=== PATIENT | female | born 1995 | race Caucasian/White ===

== ENCOUNTER 2021-08-08 17:12 | Emergency (ER) | payer OTHER, SELFPAY ==
--- NOTE | 2021-08-08 17:16 | ED.DENTAL ---
HPI - Dental/Oral General Chief complaint: Dental/Oral Stated complaint: Toothache Time Seen by Provider: 08/08/21 17:16 Source: patient and RN notes reviewed History of Present Illness HPI Narrative: Patient is a 25-year-old female who presents the urgent care with complaints of left lower dental pain. Patient states that it started to have some pus drainage today. Denies any facial swelling, fever, nausea, vomiting. Patient does not have a dentist. Patient is a current smoker. States that she has been taking Tylenol for the pain. No other acute complaints. No acute distress noted. Patient aware the plan of care. Some parts of this dictation were generated by voice recognition software and may contain typographical and/or grammatical inaccuracies. Related Data Allergies Allergy/AdvReac Type Severity Reaction Status Date / Time trazodone Allergy Intermediate Hives Verified 08/08/21 17:39 fluoxetine [From Prozac] Allergy Hives Verified 08/08/21 17:39 Review of Systems Review of Systems: CONSTITUTIONAL: Denies fever, chills, or sweats. EYES: Denies visual changes, redness, or discharge. ENT: Denies rhinorrhea, congestion, sore throat, or otalgia. Reports of left lower dental pain CARDIOVASCULAR: Denies chest pain, palpitations, or edema. RESPIRATORY: Denies cough or dyspnea. GASTROINTESTINAL: Denies abdominal pain, nausea, vomiting, or diarrhea. GENITOURINARY: Denies dysuria or hematuria. SKIN: Denies rash or itching. MUSCULOSKELETAL: Denies back pain, joint pain, or myalgia. NEUROLOGIC: Denies headache, numbness, or weakness. All other systems reviewed are negative, except as documented in HPI. PMFSH Comments At the time of my signature, I reviewed and agree with the nursing past medical, surgical, social, and family history. There is no relevant family history pertinent to the patient complaint. Exam Narrative: GENERAL: This is a well-nourished, well-developed patient, in no apparent distress. HEAD: normocephalic, atraumatic. EYES: PERRL. Sclera clear/white. Vision is grossly intact. EARS: External ears normal, auditory canals clear and without drainage, TMs normal without perforation. Hearing grossly intact. NOSE: External nose normal with no obvious nasal discharge, nares without redness, no rhinorrhea. THROAT: Mucous membranes moist DENTAL: Notable abscess to the posterior aspect of the left lower second molar with mild surrounding erythema/edema NECK: Neck supple CARDIOVASCULAR: Regular rate and rhythm without murmurs, gallops, or rubs. RESPIRATORY: Clear to auscultation. Breath sounds equal bilaterally. No wheezes, rales, or rhonchi. SKIN: warm, intact with no suspicious lesions or rash, good texture and turgor. NEURO: awake, alert, and oriented to person, place and time. There were no obvious focal neurologic abnormalities. EXTREMITIES: No clubbing, cyanosis, or edema. Course Course Level of Care: Express Care Visit Vital Signs Vital signs: Vital Signs Temperature 98.2 F 08/08/21 17:34 Pulse Rate 77 08/08/21 17:34 Respiratory Rate 20 08/08/21 17:34 Blood Pressure 120/67 08/08/21 17:34 Pulse Oximetry 100 08/08/21 17:34 Temperature 98.2 F 08/08/21 17:34 Pulse Rate 77 08/08/21 17:34 Respiratory Rate 20 08/08/21 17:34 Blood Pressure 120/67 08/08/21 17:34 Pulse Oximetry 100 08/08/21 17:34 Reviewed MDM - Dental/Oral MDM Narrative Medical decision making narrative: Advised the patient to complete the oral antibiotic regimen as prescribed. Advised the patient to eat and drink with the medication. Use Tylenol/ibuprofen as needed for pain and comfort. Use Benadryl as needed for swelling. May use an ice pack as needed for pain and comfort to the jaw. Follow-up with your PCP/dentist within 2 to 5 days or for worsening symptoms or failure to improve. Differential Diagnosis Differential diagnosis: Likely gingival abscess, dental caries, toothache, dental abscess, fracture of tooth
[2021-08-08 17:34] VITALS: BP 120/67; PULSE 77; RESP 20; TEMP 36.8; O2SAT 100
== END 2021-08-08 18:04 | disposition home or self-care (01) ==
PROVIDERS: Emergency Provider Nurse Practitioner Family
DX: K04.7 Periapical abscess without sinus (principal)
CPT/HCPCS: 99213; G0463

== ENCOUNTER 2021-09-25 15:54 | Emergency (ER) | payer OTHER, SELFPAY ==
--- NOTE | 2021-09-25 15:56 | ED.URI ---
HPI - URI/Sore Throat General Chief Complaint: Upper Respiratory Infection Stated Complaint: sinus pressure achey and nausea Time Seen by Provider: 09/25/21 15:56 Source: patient and RN notes reviewed History of Present Illness HPI Narrative: Patient is a 26-year-old female who presents the urgent care with complaints of body aches, sinus pressure, chills and sweats with intermittent nausea. Patient states that it started all within the last 24 hours and seems to worsen within the last couple hours. Patient is not anything [id number] for her symptoms. States that she has not been vaccinated but denies of any recent ill contacts. No other acute complaints. No acute distress noted. Patient read the plan of care. Some parts of this dictation were generated by voice recognition software and may contain typographical and/or grammatical inaccuracies. Related Data Allergies Allergy/AdvReac Type Severity Reaction Status Date / Time trazodone Allergy Intermediate Hives Verified 08/08/21 17:39 fluoxetine [From Prozac] Allergy Hives Verified 08/08/21 17:39 Review of Systems Review of Systems: CONSTITUTIONAL: Reports of chills and fatigue EYES: Denies visual changes, redness, or discharge. ENT: Reports of nasal congestion, rhinorrhea and postnasal drainage CARDIOVASCULAR: Denies chest pain, palpitations, or edema. RESPIRATORY: Denies cough or dyspnea. GASTROINTESTINAL: Denies abdominal pain, nausea, vomiting, or diarrhea. GENITOURINARY: Denies dysuria or hematuria. SKIN: Denies rash or itching. MUSCULOSKELETAL: Denies back pain, joint pain. Reports body aches NEUROLOGIC: Denies headache, numbness, or weakness. All other systems reviewed are negative, except as documented in HPI. PMFSH Comments At the time of my signature, I reviewed and agree with the nursing past medical, surgical, social, and family history. There is no relevant family history pertinent to the patient complaint. Exam Narrative: GENERAL: This is a well-nourished, well-developed patient appears slightly fatigued HEAD: normocephalic, atraumatic. Frontal sinus pressure EYES: PERRL. Sclera clear/white. Vision is grossly intact. EARS: External ears normal, auditory canals clear and without drainage, TMs normal without perforation. Hearing grossly intact. NOSE: External nose normal with no obvious nasal discharge. bilateral erythemic nares with clear to yellow rhinorrhea THROAT: Mucous membranes moist, posterior pharynx clear. Moderate postnasal drainage NECK: Neck supple, non-tender without lymphadenopathy CARDIOVASCULAR: Regular rate and rhythm without murmurs, gallops, or rubs. RESPIRATORY: Clear to auscultation. Breath sounds equal bilaterally. No wheezes, rales, or rhonchi. Wheezing cleared with cough. SKIN: warm, intact with no suspicious lesions or rash, good texture and turgor. NEURO: awake, alert, and oriented to person, place and time. There were no obvious focal neurologic abnormalities. EXTREMITIES: No clubbing, cyanosis, or edema. Course Course Level of Care: Express Care Visit Vital Signs Vital signs: Vital Signs Temperature 98.5 F 09/25/21 16:05 Pulse Rate 84 09/25/21 16:05 Respiratory Rate 20 09/25/21 16:05 Blood Pressure 116/64 09/25/21 16:05 Pulse Oximetry 98 09/25/21 16:05 Temperature 98.5 F 09/25/21 16:05 Pulse Rate 84 09/25/21 16:05 Respiratory Rate 20 09/25/21 16:05 Blood Pressure 116/64 09/25/21 16:05 Pulse Oximetry 98 09/25/21 16:05 Reviewed MDM - URI/Sore Throat MDM Narrative Medical decision making narrative: Reviewed lab results with the patient. She is aware that influenza, rapid strep and Covid test were all negative. Your Covid test is not a very accurate test considering symptoms are started within the last 24 hours. Quarantine is only 5 days however if you wish to repeat the Covid test you may use a home test in the next 2 to 3 days. That test should be more accurate. Educated patient on
[2021-09-25 16:05] VITALS: BP 116/64; PULSE 84; RESP 20; TEMP 36.9; O2SAT 98
== END 2021-09-25 16:48 | disposition home or self-care (01) ==
PROVIDERS: Emergency Provider Nurse Practitioner Family
DX: B34.9 Viral infection, unspecified (principal); J32.9 Chronic sinusitis, unspecified; Z20.822 Contact with and (suspected) exposure to COVID-19
CPT/HCPCS: 87081; 87426; 87804; 87880; 99213; C9803; G0463

== ENCOUNTER 2021-11-29 12:02 | Emergency (ER) | payer OTHER, SELFPAY ==
[2021-11-29 12:04] VITALS: BP 125/67; PULSE 79; RESP 18; TEMP 36.9; O2SAT 100
[2021-11-29 12:15] VITALS: BP 105/61; PULSE 73; RESP 18; TEMP 37.1; O2SAT 98
--- NOTE | 2021-11-29 12:41 | ED.NAVMDI ---
HPI - Nausea/Vomiting/Diarrhea General Chief complaint: Nausea/Vomiting/Diarrhea Stated complaint: hypermesis during - 8 weeks Time Seen by Provider: 11/29/21 12:33 Source: patient History of Present Illness HPI Narrative: Patient presents with nausea and vomiting. She is approximately 8 weeks by LMP she has been nauseous and vomiting for the past 3 weeks. She is attempted various elana elements as well as Unisom and B6 without relief of her symptoms appear to be getting worse so she came to ER for evaluation. Denies abdominal pain vaginal bleeding vaginal discharge urinary symptoms or diarrhea. She has any fevers or known sick contacts denies any recent antibiotics. Related Data Allergies Allergy/AdvReac Type Severity Reaction Status Date / Time trazodone Allergy Intermediate Hives Verified 09/25/21 16:51 fluoxetine [From Prozac] Allergy Hives Verified 09/25/21 16:51 Review of Systems Review of Systems: CONSTITUTIONAL: Denies fever, chills, or sweats. EYES: Denies visual changes, redness, or discharge. ENT: Denies rhinorrhea, congestion, sore throat, or otalgia. CARDIOVASCULAR: Denies chest pain, palpitations, or edema. RESPIRATORY: Denies cough or dyspnea. GASTROINTESTINAL: Reports nausea and vomiting GENITOURINARY: Denies dysuria or hematuria. SKIN: Denies rash or itching. MUSCULOSKELETAL: Denies back pain, joint pain, or myalgia. NEUROLOGIC: Denies headache, numbness, dizziness, or weakness. PSYCHIATRIC: Denies anxiety or depression. All systems reviewed & are unremarkable except as noted in HPI and below PMFSH Past Medical History Medical History (Updated 11/29/21 @ 15:18 by Chicho Khalil MD) Patient denies significant medical history Social History Social History (Updated 11/29/21 @ 12:43 by Chicho Khalil MD) Living arrangements: with family Exam Narrative: GENERAL: Well-appearing, well-nourished, and in no acute distress. HEAD: Normocephalic, atraumatic. EYES: PERRLA and EOMI. ENT: Nares clear, no rhinorrhea or epistaxis. Mucous membranes moist. NECK: Supple. No masses. No JVD ABDOMEN: Soft, nontender, nondistended, normal active bowel sounds. EXTREMITIES: Normal range of motion. No edema. SKIN: Warm, dry, no rash. NEURO: No focal deficits. Alert and oriented x3. PSYCH: Normal mood and affect. Course Reevaluation(s) Reevaluation #1: Patient ports feeling much improved results and plan with patient. Patient is comfortable outpatient plan. Date: 11/29/21 Time: 15:08 Vital Signs Vital signs: Vital Signs Temperature 36.9 C 11/29/21 12:04 Pulse Rate 79 11/29/21 12:04 Respiratory Rate 18 11/29/21 12:04 Blood Pressure 125/67 11/29/21 12:04 Pulse Oximetry 100 11/29/21 12:04 Temperature 37.1 C 11/29/21 12:15 Pulse Rate 75 11/29/21 15:41 Respiratory Rate 16 11/29/21 15:41 Blood Pressure 97/62 L 11/29/21 15:41 Pulse Oximetry 99 11/29/21 15:41 Procedures Other Procedure Procedure 1: Other Procedure: Bedside transabdominal ED OB ultrasound there is a single IUP in the gestational sac with a heart rate of 150 no masses identified on the adnexa no free fluid in the pelvis identified. Findings consistent with viable single IUP. MDM - Nausea/Vomiting/Diarrhea MDM Narrative Medical decision making narrative: H&P as above, vss, pt looks clinically well, exam without acute abdomen, labs with dirty urine otherwise clinically unremarkable, img with viable IUP, additional labs/img considered, symptomatic relief available as needed, on reevaluation pt continues to looks clinically well. Suspect nausea vomiting related to given urine findings and will treat with Macrobid, dns severe sepsis, severe dehydration, pyelonephritis. plan to tx/monitor as op w/ pcm f/u findings/plan discussed with pt, pt agree/comfortable with plan, return precautions given Lab Data Result diagrams: 11/29/21 12:37 11/29/21 12:3
[2021-11-29 12:45] LABS: Basophils Percent Auto 0.3 % (0.2-1.2); Eosinophils Absolute Auto 0.3 K/mm3 (0-0.3); Eosinophils Percent Auto 3.5 % (0-4.4); Hematocrit 42.1 % (37.0-47.0); Hemoglobin 14.1 g/dL (12.0-15.0); Immature Granulocyte Absolute 0.01 K/mm3 (0.00-0.031); Immature Granulocyte Percent A 0.1 % (0-0.5); Lymphocytes Absolute Auto 2.21 K/mm3 (0.9-3.2); Lymphocytes Percent Auto 30.8 % (18.3-44.2); Mean Corpuscular HGB Conc 33.5 g/dl (32-36); Mean Corpuscular Hemoglobin 28.7 pg (26-34); Mean Corpuscular Volume 85.7 fl (80-100); Mean Platelet Volume 9.6 fl (7.4-10.4); Monocytes Absolute Auto 0.3 K/mm3 (0.1-0.6); Monocytes Percent Auto 4.7 % (2.6-8.5); Neutrophils Absolute Auto 4.3 K/mm3 (1.3-6.7); Neutrophils Percent Auto 60.6 % (45.5-73.1); Platelet Count Result 209 k/mm3 (150-375); Red Blood Count 4.91 M/mm3 (4.2-5.4); Red Cell Distribution Width 12.3 % (11.5-14.5); White Blood Count 7.2 K/mm3 (4.5-10.0)
[2021-11-29 12:57] LABS: Alanine Aminotransferase 16 U/L (4-35); Albumin Level 4.3 g/dL (3.5-5.1); Alkaline Phosphatase 61 U/L (38-126); Anion Gap 5 mmol/L (8-16); Aspartate Amino Transferase 20 U/L (14-36); Bilirubin,Total 0.6 mg/dL (0.2-1.3); Blood Urea Nitrogen 7 mg/dL (7-17); Calcium 8.7 mg/dL (8.4-10.2); Carbon Dioxide 25 mmol/L (22-30); Chloride 104 mmol/L (98-107); Estimated CRCL calculation 178 ml/min; Estimated Glomerular Filt Rate > 60; Glucose 92 mg/dL (65-110); Lipase 26 U/L (23-300); Potassium 3.7 mmol/L (3.4-5.0); Sodium 134 mmol/L (137-145)
[2021-11-29] MEDS: DEXTROSE 5%/0.9% SOD CHL 1,000 ML 999 ML IV CONT (12:58)
[2021-11-29 13:12] VITALS: BP 116/73; PULSE 70; RESP 18; O2SAT 96
[2021-11-29 13:13] LABS: Appearance Urine Cloudy (Clear); Bilirubin Urine 2+ (Negative); Blood Urine Negative (Negative); Color Urine Amber (Yellow); Glucose Urine UA Negative (Negative); Ketones Urine 2+ mg/dL (Negative); Leukocyte Esterase Ur Trace LEU/UL (Negative); Nitrate Urine Negative (Negative); Protein Urine 1+ mg/dL (Negative); Specific Grav Ur >= 1.030 (1.001-1.035)
[2021-11-29 13:19] LABS: Mucus Urine Heavy /lpf; Squamous Epithelial Cell Urine Many /hpf (Few)
[2021-11-29 13:23] LABS: Add Urine Microscopic? YES
[2021-11-29] MEDS: METOCLOPRAMIDE HCL INJ 10 MG/2 ML VIAL IV PUSH (14:17)
[2021-11-29 14:19] VITALS: BP 111/61; PULSE 68; RESP 17; O2SAT 100
[2021-11-29 15:41] VITALS: BP 97/62; PULSE 75; RESP 16; O2SAT 99
== END 2021-11-29 15:40 | disposition home or self-care (01) ==
PROVIDERS: Emergency Medicine; Emergency Provider Emergency Medicine
DX: O21.9 Vomiting of pregnancy, unspecified (principal); O26.91 Pregnancy related conditions, unspecified, first trimester; R82.90 Unspecified abnormal findings in urine; Z3A.08 8 weeks gestation of pregnancy
CPT/HCPCS: 36415; 80053; 81001; 81025; 83690; 85025; 87086; 96361; 96365; 96375; 99284; J0131; J2765; J7042

== ENCOUNTER 2021-11-30 14:07 | Emergency (ER) | payer OTHER, SELFPAY ==
[2021-11-30 14:11] VITALS: BP 127/81; PULSE 102; RESP 16; TEMP 37; O2SAT 99
--- NOTE | 2021-11-30 15:12 | ED.NAVMDI ---
HPI - Nausea/Vomiting/Diarrhea General Chief complaint: Nausea/Vomiting/Diarrhea Stated complaint: Vomiting Time Seen by Provider: 11/30/21 15:12 Source: patient, RN notes reviewed and old records reviewed Mode of arrival: ambulatory Limitations: no limitations History of Present Illness HPI Narrative: 26-year-old female presents to [facility] with being 8 weeks she was seen in the ER yesterday and was given Reglan which has not helped her nausea and vomiting. Patient reports that she has been experiencing nausea and vomiting for the past 3 weeks. She states that she tried Unisom and B6 and the Reglan without improvement in nausea and vomiting. Patient denies any abdominal pain, no vaginal discharge or bleeding, denies any burning with urination at this time is taking Macrobid for UTI.Patient is afebrile has been able to keep some water down today MD elicited complaint: nausea and vomiting Pertinent past history: other (8 weeks ) Associated nausea: Yes Associated abdominal pain: No Treatment prior to arrival: other (Reglan and Unisom and B6) Related Data Allergies Allergy/AdvReac Type Severity Reaction Status Date / Time trazodone Allergy Intermediate Hives Verified 11/30/21 14:16 fluoxetine [From Prozac] Allergy Hives Verified 11/30/21 14:16 Review of Systems Review of Systems: CONSTITUTIONAL: Denies fever, chills, or sweats. EYES: Denies visual changes, redness, or discharge. ENT: Denies rhinorrhea, congestion, sore throat, or otalgia. CARDIOVASCULAR: Denies chest pain, palpitations, or edema. RESPIRATORY: Denies cough or dyspnea. GASTROINTESTINAL: Denies abdominal pain,positive for nausea, vomiting, no diarrhea. GENITOURINARY: Denies dysuria or hematuria is presently on Macrobid for UTI SKIN: Denies rash or itching. MUSCULOSKELETAL: Denies back pain, joint pain, or myalgia. NEUROLOGIC: Denies headache, numbness, or weakness. PSYCHIATRIC: Denies anxiety or depression. All systems reviewed & are unremarkable except as noted in HPI and below PMFSH Past Medical History Medical History (Updated 12/01/21 @ 00:00 by Obinna Navarro) Patient denies significant medical history Surgical History Surgical History (Updated 12/01/21 @ 17:33 by Rocío Fernandez NP) S/P tonsillectomy and adenoidectomy Social History Social History (Updated 12/01/21 @ 17:45 by Rocío Fernandez NP) Smoking packs per day: 0.5 Smoking cigarettes per day: 10.0 Smoking status: Current every day smoker Alcohol intake: former Substance use type: does not use Living arrangements: with family Gender identity (if verbalized by the patient): Female Comments At time of signature, agree with nursing past medical, surgical, social and family history. There is no relevant family history pertinent to the presenting complaint Exam Narrative: GENERAL: Well-appearing, well-nourished, and in no acute distress. HEAD: Normocephalic, atraumatic. EYES: PERRLA and EOMI. ENT: Nares clear, no rhinorrhea or epistaxis. Mucous membranes moist.TM's normal with good light reflex, throat pink with no lesions or exudates, no tonsils present NECK: Supple.no lymphadenopathy CHEST: Clear to auscultation. No respiratory distress. no tachypnea. SAO2 99% on room air HEART: Regular rate and rhythm. No murmur heard. Normal peripheral pulses. ABDOMEN: Soft, nontender, nondistended, normal active bowel sounds, nausea and vomiting, denies any diarrhea. EXTREMITIES: Normal range of motion. No edema. SKIN: Warm, dry, no rash. NEURO: No focal deficits. Alert and oriented x3. Course Course Level of Care: Express Care Visit Vital Signs Vital signs: Vital Signs Temperature 37.0 C 11/30/21 14:11 Pulse Rate 102 H 11/30/21 14:11 Respiratory Rate 16 11/30/21 14:11 Blood Pressure 127/81 11/30/21 14:11 Pulse Oximetry 99 11/30/21 14:11 Temperature 37.0 C 11/30/21 14:11 Pulse Rate 102 H 11/30/21 14:11 Respiratory Rate 16
== END 2021-11-30 15:44 | disposition home or self-care (01) ==
PROVIDERS: Emergency Provider Registered Nurse
DX: O26.891 Other specified pregnancy related conditions, first trimester (principal); R11.2 Nausea with vomiting, unspecified; O99.331 Smoking (tobacco) complicating pregnancy, first trimester; Z3A.08 8 weeks gestation of pregnancy
CPT/HCPCS: 99213; G0463

== ENCOUNTER 2022-01-08 17:08 | Emergency (ER) | payer OTHER, SELFPAY ==
[2022-01-08 17:16] VITALS: BP 125/67; PULSE 109; RESP 20; TEMP 37.6; O2SAT 98
--- NOTE | 2022-01-08 18:24 | ED.URI ---
HPI - URI/Sore Throat General Chief Complaint: Upper Respiratory Infection Stated Complaint: sore throat,fatigue,tyrell Time Seen by Provider: 01/08/22 18:25 Source: patient, RN notes reviewed and old records reviewed Mode of arrival: ambulatory Limitations: no limitations History of Present Illness HPI Narrative: 26 years female complains of sore throat,nausea, fatigue, and congestion, headaches and ear aches for the past 24 hours. Patient reports that she has been taking her Zofran for her nausea. Patient is 3 1/2 month . Patient admits to vaping some, states she started vaping to quit cigarettes and is gradually decreasing vaping. Patient admits that she was smoking marijuana till she got her prescription for Zofran because she has been having lot of nausea with . Patient reports that she has not had COVID immunizations or flu shot. MD elicited complaint: cough, sore throat and other (fatigue) Onset (ago): day(s) (1) Pain scale (0-10): 6 Treatments prior to arrival: acetaminophen and other (Zofran for nausea) Related Data Home Medications Medication Instructions Recorded Confirmed aripiprazole 5 mg tablet 1 tablet PO DAILY 01/08/22 01/08/22 hydroxyzine HCl 25 mg tablet 1 tablet PO TID 01/08/22 01/08/22 scopolamine base 1 mg over 3 days 1 ea transdermal Q72H 01/08/22 01/08/22 transdermal patch Allergies Allergy/AdvReac Type Severity Reaction Status Date / Time trazodone Allergy Intermediate Hives Verified 01/08/22 17:59 fluoxetine [From Prozac] Allergy Hives Verified 01/08/22 17:59 Review of Systems Review of Systems: CONSTITUTIONAL: Denies fever, chills, or sweats. EYES: Denies visual changes, redness, or discharge. ENT: Positive for rhinorrhea, congestion, sore throat, also otalgia. CARDIOVASCULAR: Denies chest pain, palpitations, or edema. RESPIRATORY: Positive for cough no dyspnea. GASTROINTESTINAL: Denies abdominal pain, nausea, vomiting, or diarrhea. GENITOURINARY: Denies dysuria or hematuria. SKIN: Denies rash or itching. MUSCULOSKELETAL: Denies back pain, joint pain, or myalgia. NEUROLOGIC: Reports headache,no numbness, or weakness.reports some fatigue PSYCHIATRIC: Positive for history of anxiety or depression. All systems reviewed & are unremarkable except as noted in HPI and below PMFSH Past Medical History Medical History (Updated 01/10/22 @ 15:22 by Rocío Fernandez NP) Anxiety and depression Patient denies significant medical history Surgical History Surgical History (Updated 12/01/21 @ 17:33 by Rocío Fernandez NP) S/P tonsillectomy and adenoidectomy Social History Social History (Updated 12/01/21 @ 17:45 by Rocío Fernandez NP) Smoking packs per day: 0.5 Smoking cigarettes per day: 10.0 Smoking status: Current every day smoker Alcohol intake: former Substance use type: does not use Gender identity (if verbalized by the patient): Female Comments At time of signature, agree with nursing past medical, surgical, social and family history. There is no relevant family history pertinent to the presenting complaint Exam Narrative: GENERAL: Well-appearing, well-nourished, and in no acute distress. HEAD: Normocephalic, atraumatic. EYES: PERRLA and EOMI. ENT: Nares with minimal redness, clear rhinorrhea no epistaxis. Mucous membranes moist.TM's normal with good light reflex, throat pink with no lesions or exudates, no tonsils present NECK: Supple.no lymphadenopathy CHEST: Clear to auscultation. No respiratory distress.no tachypnea, dry cough SAO2 98% on room air HEART: Regular rate and rhythm. No murmur heard. Normal peripheral pulses. ABDOMEN: Soft, nontender, nondistended, normal active bowel sounds. EXTREMITIES: Normal range of motion. No edema. SKIN: Warm, dry, no rash. NEURO: No focal deficits. Alert and oriented x3,irritable Course Course Level of Care: Express Care Visit Vital Signs Vital signs: Vital Signs Temperature 37.6 C H 01/08/22 17:16
== END 2022-01-08 18:48 | disposition home or self-care (01) ==
PROVIDERS: Emergency Provider Registered Nurse
DX: O99.519 Diseases of the respiratory system complicating pregnancy, unspecified trimester (principal); Z3A.00 Weeks of gestation of pregnancy not specified; J06.9 Acute upper respiratory infection, unspecified; O99.340 Other mental disorders complicating pregnancy, unspecified trimester; F41.9 Anxiety disorder, unspecified
CPT/HCPCS: 87081; 87880; 99213; G0463

== ENCOUNTER 2022-09-23 17:37 | Emergency (ER) | payer OTHER, SELFPAY ==
[2022-09-23 17:40] VITALS: BP 128/74; PULSE 89; RESP 20; TEMP 36.6; O2SAT 100
--- NOTE | 2022-09-23 17:50 | ED.URI ---
HPI - URI/Sore Throat General Chief Complaint: Upper Respiratory Infection Stated Complaint: sore/swollen throat; congestion Time Seen by Provider: 09/23/22 17:51 History of Present Illness HPI Narrative: PATIENT PRESENTS WITH A 3 DAY HISTOY OF NASAL CONGESTON AND STARTED WITH A SORE THROAT TODAY. PATIENT IS NORMALLY HEALTHY AND IS NOT TAKING ANYTHING OTC FOR SYMPTOMS Related Data Home Medications Medication Instructions Recorded Confirmed aripiprazole 5 mg tablet 1 tablet PO DAILY 01/08/22 01/08/22 hydroxyzine HCl 25 mg tablet 1 tablet PO TID 01/08/22 01/08/22 scopolamine base 1 mg over 3 days 1 ea transdermal Q72H 01/08/22 01/08/22 transdermal patch Abilify 09/23/22 methadone 09/23/22 Allergies Allergy/AdvReac Type Severity Reaction Status Date / Time trazodone Allergy Intermediate Hives Verified 01/08/22 17:59 fluoxetine [From Prozac] Allergy Hives Verified 01/08/22 17:59 Review of Systems Review of Systems: CONSTITUTIONAL: DENIES FEVER, CHILLS, OR SWEATS. EYES: DENIES VISUAL CHANGES, REDNESS, OR DISCHARGE. ENT: DENIES RHINORRHEA, CONGESTION, SORE THROAT, OR OTALGIA. CARDIOVASCULAR: DENIES CHEST PAIN, PALPITATIONS, OR EDEMA. RESPIRATORY: DENIES COUGH OR DYSPNEA. GASTROINTESTINAL: DENIES ABDOMINAL PAIN, NAUSEA, VOMITING, OR DIARRHEA. GENITOURINARY: DENIES DYSURIA OR HEMATURIA. SKIN: DENIES RASH OR ITCHING. MUSCULOSKELETAL: DENIES BACK PAIN, JOINT PAIN, OR MYALGIA. NEUROLOGIC: DENIES HEADACHE, NUMBNESS, OR WEAKNESS. PSYCHIATRIC: DENIES ANXIETY OR DEPRESSION. [facility] Past Medical History Medical History (Updated 09/23/22 @ 17:56 by MYLENE Noonan) Anxiety and depression Patient denies significant medical history Surgical History Surgical History (Updated 12/01/21 @ 17:33 by Rocío Fernandez NP) S/P tonsillectomy and adenoidectomy Social History Social History (Updated 12/01/21 @ 17:45 by Rocío Fernandez NP) Smoking packs per day: 0.5 Smoking cigarettes per day: 10.0 Smoking status: Current every day smoker Alcohol intake: former Substance use type: does not use Living arrangements: with family Gender identity (if verbalized by the patient): Female Comments AT TIME OF SIGNATURE, AGREE WITH NURSING PAST MEDICAL, SURGICAL, SOCIAL AND FAMILY HISTORY. THERE IS NO RELEVANT FAMILY HISTORY PERTINENT TO THE PRESENTING COMPLAINT Exam Narrative: GENERAL: WELL-APPEARING, WELL-NOURISHED, AND IN NO ACUTE DISTRESS. HEAD: NORMOCEPHALIC, ATRAUMATIC. EYES: PERRLA AND EOMI. ENT: NARES CLEAR, NO RHINORRHEA OR EPISTAXIS. MUCOUS MEMBRANES MOIST. NECK: SUPPLE. CHEST: CLEAR TO AUSCULTATION. NO RESPIRATORY DISTRESS. HEART: REGULAR RATE AND RHYTHM. NO MURMUR HEARD. NORMAL PERIPHERAL PULSES. ABDOMEN: SOFT, NONTENDER, NONDISTENDED, NORMAL ACTIVE BOWEL SOUNDS. EXTREMITIES: NORMAL RANGE OF MOTION. NO EDEMA. SKIN: WARM, DRY, NO RASH. NEURO: NO FOCAL DEFICITS. ALERT AND ORIENTED X3. CYNDI COMA SCALE EYE OPENING: SPONTANEOUS 4 CYNDI COMA SCALE MOTOR: OBEYS COMMANDS 6 CYNDI COMA SCALE VERBAL: ORIENTED 5 CYNDI COMA SCALE TOTAL 15 Course Course Level of Care: Express Care Visit Vital Signs Vital signs: Vital Signs Temperature 36.6 C 09/23/22 17:40 Pulse Rate 89 09/23/22 17:40 Respiratory Rate 20 09/23/22 17:40 Blood Pressure 128/74 09/23/22 17:40 Pulse Oximetry 100 09/23/22 17:40 Oxygen Delivery Room Air 09/23/22 17:40 Temperature 36.6 C 09/23/22 17:40 Pulse Rate 89 09/23/22 17:40 Respiratory Rate 20 09/23/22 17:40 Blood Pressure 128/74 09/23/22 17:40 Pulse Oximetry 100 09/23/22 17:40 Oxygen Delivery Room Air 09/23/22 17:40 MDM - URI/Sore Throat Differential Diagnosis Differential diagnosis: Likely upper respiratory infection, croup, otitis media, sinusitis, viral infection, bronchitis, influenza and pharyngitis Discharge Plan Discharge Clinical Impression: Pharyngitis, Upper respiratory infection Patient Dispositio
== END 2022-09-23 18:01 | disposition home or self-care (01) ==
PROVIDERS: Emergency Provider Nurse Practitioner Family
DX: J02.9 Acute pharyngitis, unspecified (principal); J06.9 Acute upper respiratory infection, unspecified; F17.210 Nicotine dependence, cigarettes, uncomplicated; F41.9 Anxiety disorder, unspecified
CPT/HCPCS: 87081; 87880; 99213; G0463

== ENCOUNTER 2022-10-02 16:04 | Emergency (ER) | payer OTHER, SELFPAY ==
[2022-10-02 16:10] VITALS: BP 124/68; PULSE 74; RESP 20; TEMP 36.8; O2SAT 100
--- NOTE | 2022-10-02 16:41 | ED.DENTAL ---
HPI - Dental/Oral General Chief complaint: Dental/Oral Stated complaint: Toothache Time Seen by Provider: 10/02/22 16:42 Source: patient Mode of arrival: ambulatory History of Present Illness HPI Narrative: 27-year-old female presenting for intermittent Right upper and lower dental pain for several weeks. Denies significant swelling or active drainage, n/v/d/f/c. She completed a course of antibiotics about a week ago for the same complaint. Has been seen in the ER as well. She has an appointment with the dentist in 1 month. taking Tylenol and ibuprofen for pain. History of substance abuse, currently on methadone. Rates pain 05/08. MD Complaint: tooth pain Related Data Home Medications Medication Instructions Recorded Confirmed aripiprazole 5 mg tablet 1 tablet PO DAILY 01/08/22 01/08/22 hydroxyzine HCl 25 mg tablet 1 tablet PO TID 01/08/22 01/08/22 Abilify 09/23/22 methadone 09/23/22 prazosin 1 mg capsule mg 10/02/22 Allergies Allergy/AdvReac Type Severity Reaction Status Date / Time trazodone Allergy Intermediate Hives Verified 01/08/22 17:59 fluoxetine [From Prozac] Allergy Hives Verified 01/08/22 17:59 Review of Systems Review of Systems: CONSTITUTIONAL: Denies body aches, fever, chills ENT: Denies rhinorrhea, congestion, sore throat, or otalgia. Reports dental pain CARDIOVASCULAR: Denies chest pain, palpitations RESPIRATORY: Denies cough or dyspnea. SKIN: Denies rash, itching, or wounds. MUSCULOSKELETAL: Denies myalgia. NEUROLOGIC: Denies headache, numbness, tingling, or weakness. [facility] Past Medical History Medical History Anxiety and depression Patient denies significant medical history Surgical History Surgical History S/P tonsillectomy and adenoidectomy Social History Social History Smoking packs per day: 0.5 Smoking cigarettes per day: 10.0 Smoking status: Current every day smoker Alcohol intake: former Substance use type: does not use Living arrangements: with family Gender identity (if verbalized by the patient): Female Comments At time of signature, I have reviewed and agree with nursing past medical, surgical, social and family history unless otherwise noted. Please see nursing chart for further information. There is no relevant family history pertinent to the presenting complaint Exam Narrative: GENERAL: Appears in pain; no acute distress. HEAD: Normocephalic, atraumatic. EYES: EOMI. No redness or drainage. Conjunctivae normal. ENT: Dental pain location of #2 and #31; teeth are broken and black, minimal gum swelling, no drainage. Poor dentition with caries throughout. Mucous membranes pink and moist. TMs normal bilaterally. Throat normal. Uvula midline. NECK: Normal AROM. No lymphadenopathy. CHEST: Clear to auscultation. HEART: Regular rate and rhythm. No murmur appreciated. SKIN: Warm, dry, no rash. Normal skin turgor. Course Course Emergency Course: Patient is aware of diagnosis, understands and agrees to treatment plan. Anticipatory guidance given. Patient agrees to follow-up as directed and is aware of reasons to seek care at the emergency department. Portions of this record may have been created with voice recognition software Level of Care: Express Care Visit Vital Signs Vital signs: Vital Signs Temperature 98.3 F 10/02/22 16:10 Pulse Rate 74 10/02/22 16:10 Respiratory Rate 20 10/02/22 16:10 Blood Pressure 124/68 10/02/22 16:10 Pulse Oximetry 100 10/02/22 16:10 Oxygen Delivery Room Air 10/02/22 16:10 Temperature 98.3 F 10/02/22 16:10 Pulse Rate 74 10/02/22 16:10 Respiratory Rate 20 10/02/22 16:10 Blood Pressure 124/68 10/02/22 16:10 Pulse Oximetry 100 10/02/22 16:10 Oxygen Delivery Room Air 10/02/22 16:10 [facility]
== END 2022-10-02 16:58 | disposition home or self-care (01) ==
PROVIDERS: Emergency Provider Nurse Practitioner Family; PCP Family Medicine
DX: K08.89 Other specified disorders of teeth and supporting structures (principal); F17.210 Nicotine dependence, cigarettes, uncomplicated
CPT/HCPCS: 99213; G0463

== ENCOUNTER 2023-09-20 08:02 | Outpatient (CLI) | payer OTHER, SELFPAY ==
--- NOTE | ~2023-09-20 | US_ITS ---
Limited Abdominal Sonogram: Real-time sonographic imaging of the right upper quadrant was performed. Clinical History: Abnormal liver enzyme levels Findings: The liver appears mildly echogenic, with no evidence of bile duct dilatation. Possible sub tle 2.1 cm hyperechoic mass at the left hepatic lobe. Main portal vein demonstrates normal direction of flow. The gallbladder is well distended, and appears normal with no evidence of gallstone or wall thickening. The common bile duct measures 3 mm. The visualized pancreas, aorta, and IVC are unremark able. Impression: Suspected 2.1 cm hyperechoic mass at the left hepatic lobe, most likely hemangioma. Consider follow-u p MR to confirm. Probable underlying mild diffuse fatty infiltration of the liver. Reviewed, dictated and finalized at [facility]. T DESK Impression: Suspected 2.1 cm hyperechoic mass at the left hepatic lobe, most likely hemangi christie. Consider follow-up MR to confirm. Probable underlying mild diffuse fatty infiltration of the liver.
== END 2023-09-20 08:03 | disposition home or self-care (01) ==
LOC: CHSIMG 08:04
PROVIDERS: PCP Family Medicine; Visit Provider Physician Assistant
DX: R74.01 Elevation of levels of liver transaminase levels (principal); R93.2 Abnormal findings on diagnostic imaging of liver and biliary tract
CPT/HCPCS: 76705

== ENCOUNTER 2024-11-29 09:49 | Emergency (ER) | payer OTHER, SELFPAY ==
[2024-11-29 09:56] VITALS: BP 115/83; PULSE 70; RESP 18; TEMP 36.7; O2SAT 97
--- NOTE | 2024-11-29 09:56 | ED.FEMALEGU ---
HPI - Female Genitourinary General Chief complaint: Vaginal Bleeding Stated complaint: vaginal bleeding Time Seen by Provider: 11/29/24 09:55 Source: patient Mode of arrival: ambulatory Limitations: no limitations History of Present Illness HPI Narrative: 29-year-old female, smoker with a history of personality disorder, methadone use, who is G#[id number], 7 weeks with confirmed intrauterine location presents to the ED with the 20 minute history of -- vaginal bleeding. Amount of bleeding is unknown. Patient has morning sickness the past few days. She was recently started on an antibiotic for urinary tract infection No abdominal pain. MD elicited complaint: vaginal bleeding Pertinent past history: prior miscarriages Onset (ago): minute(s) ( 20 minutes) Vaginal discharge: none Vaginal bleeding: scant Exacerbating factors: none Relieving factors: none Associated symptoms: nausea and vomiting Treatment prior to arrival: none Patient : Yes Date of Last Menstrual Period: 10/07/24 Related Data : 3 Para: 1 Total number of abortions (spontaneous and elective): 1 Home Medications ?Medication ?Instructions ?Recorded ?Confirmed ?Last Taken ?Type aripiprazole 5 mg tablet 1 tablet PO DAILY 01/08/22 01/08/22 Unknown History hydroxyzine HCl 25 mg tablet 1 tablet PO TID 01/08/22 01/08/22 Unknown History Abilify 09/23/22 Unknown History methadone 09/23/22 Unknown History prazosin 1 mg capsule mg 10/02/22 Unknown History Allergies Allergy/AdvReac Type Severity Reaction Status Date / Time trazodone Allergy Intermediate Hives Verified 11/29/24 09:50 fluoxetine (From Prozac) Allergy Hives Verified 11/29/24 09:50 Review of Systems Review of Systems: All systems reviewed & are unremarkable except as noted in HPI and below Constitutional: Constitutional: Reports as per HPI and Reports no additional constitutional complaints Eyes: Eyes: Reports as per HPI and Reports no additional eye complaints ENT: Reports system reviewed and no additional complaints, except as documented and Reports as per HPI Cardiovascular: Cardiovascular: Reports as per HPI and Reports no additional cardiovascular complaints Respiratory: Respiratory: Reports as per HPI and Reports no additional respiratory complaints Gastrointestinal: Gastrointestinal: Reports as per HPI, Reports no additional gastrointestinal complaints, Reports nausea and Reports vomiting Genitourinary: Genitourinary: Reports abnormal vaginal bleeding Musculoskeletal: Musculoskeletal: Reports no additional musculoskeletal complaints and Reports as per HPI Integumentary/Breasts: Skin/Breast: Reports system reviewed and no additional complaints, except as docu and Reports as per HPI Neurologic: Reports system reviewed and no additional complaints, except as documented and Reports as per HPI Psychiatric: Psychiatric: Reports no additional psychiatric complaints and Reports as per HPI Endocrine: Endocrine: Reports no additional endocrine complaints and Reports as per HPI Hematologic/Lymphatic: Hematologic/Lymphatic: Reports no additional hematologic/lymphatic complaints and Reports as per HPI Allergic/Immunologic: Allergic/Immunologic: Reports no additional allergic/immunologic complaints and Reports as per HPI [facility] Past Medical History Medical History Anxiety and depression Patient denies significant medical history Surgical History Surgical History S/P tonsillectomy and adenoidectomy Social History Social History Smoking packs per day: 0.5 Smoking cigarettes per day: 10.0 Smoking status: Current every day smoker Alcohol intake: former Substance use type: does not use Living arrangements: with family Gender identity (if verbalized by the patient): Female Exam Narrative: vitals are stable Const: General: healthy appearing and no acute distress Nutritional Appearance: well nourished Orientation/consciousness: patient oriented x3 Limitations: no limitations HENMT: Head: normal to inspection Ears: external ears normal Face/Nose/Sinus: Normal external nose present Face and sinus: normal facial exam Mouth: Yes Normal oral and palatal mucosa present Throat: posterior oropharynx normal Eyes: Conjunctivae: conjunctivae normal Pupils: Equal, round and reactive pupils present EOM: EOMs intact bilaterally Direct Ophthalmoscopy: no photophobia Neck: Neck: normal visual inspection, no lymphadenopathy and no meningeal signs Chest: Chest palpation & inspection: normal inspection of the chest Resp: Effort & Inspection: normal respiratory effort Auscultation: clear to auscultation bilaterally Cardio: Rate: regular rate Rhythm: regular rhythm GI: GI Palp: Yes Soft to palpation Auscultation: normal bowel sounds Other: no tenderness/rigidity / rebound. : General: Yes no CVA tenderness Back/Spine/Pelvis: Back: no CVA tenderness Skin: General skin exam: normal color Rashes: no rashes Neuro: General: patient oriented x3, moves all extremities and no meningeal signs Cranial nerves: Yes Nystagmus not present Speech: normal speech Gait exam (Neuro): Normal gait present Extrem: General: normal to inspection and no clubbing, cyanosis or edema Psych: Appearance: grossly normal and well kempt Mental Status: mental status grossly normal Affect: normal affect Attitude: cooperative Course Course Emergency Course: Threatened miscarriage[place] [id number] Will advise full bedrest and 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 blood group is A positive Vital Signs Vital signs: Vital Signs Temperature 36.7 C 11/29/24 09:56 Pulse Rate 70 11/29/24 09:56 Respiratory Rate 18 11/29/24 09:56 Blood Pressure 115/83 11/29/24 09:56 Pulse Oximetry 97 11/29/24 09:56 Oxygen Delivery Room Air 11/29/24 09:56 Temperature 36.7 C 11/29/24 09:56 Pulse Rate 70 11/29/24 09:56 Respiratory Rate 18 11/29/24 09:56 Blood Pressure 115/83 11/29/24 09:56 Pulse Oximetry 97 11/29/24 09:56 Oxygen Delivery Room Air 11/29/24 09:56 MDM - Female Genitourinary MDM Narrative Medical decision making narrative: threatened miscarriage Differential Diagnosis Differential diagnosis: Likely urinary tract infection Medical Records Attestation: I reviewed the patient's medical records. Lab Data Attestation: I reviewed the patient's lab results. 11/29/24 10:23 11/29/24 10:23 Labs: Lab Results 11/29/24 11/29/24 Range/Units 10:09 10:23 WBC 8.3 (4.8-10.8) K/mm3 RBC 4.66 (4.20-5.40) M/mm3 Hgb 12.5 (12.0-15.0) g/dL Hct 39.1 (35.0-49.0) % MCV 83.9 (78.0-102.0) fL MCH 26.8 L (27.0-31.0) pg MCHC 32.0 (32-36) g/dL RDW 13.0 (11.6-14.4) % Plt Count 233 (150-420) K/mm3 MPV 9.9 (9.2-11.8) fl Immature Gran % (Auto) 0.4 H (0.0-0.0) % Neut % (Auto) 73.9 H (50.0-70.0) % Lymph % (Auto) 21.4 (18.0-42.0) % Nance % (Auto) 2.9 (2.0-11.0) % Eos % (Auto) 1.3 (1.0-6.0) % Baso % (Auto) 0.1 (0.0-1.0) % Lymph # (Auto) 1.78 (1.10-4.50) K/mm3 Nance # (Auto) 0.24 (0.10-0.90) K/mm3 Eos # (Auto) 0.11 (0.02-0.50) K/mm3 Baso # (Auto) 0.01 (0.00-0.10) K/mm3 Abs Immat Gran (auto) 0.03 H (0.00-0.00) K/mm3 Absolute Neuts (auto) 6.15 (1.70-7.20) K/mm3 Absolute Nucleated RBC 0.00 (0.00-0.00) K/mm3 Nucleated RBC % 0.0 (0-0.0) % PT 10.8 (9.50-12.1) Seconds INR 1.0 APTT 27.4 (23.9-30.70) Sec Sodium 136 (136-145) mmol/L Potassium 3.9 (3.5-5.1) mmol/L Chloride 102 (98-108) mmol/L Carbon Dioxide 25 (21-32) mmol/L Anion Gap 9 (4-12) mmol/L BUN 6 L (7-18) mg/dL Creatinine 0.68 (0.55-1.02) mg/dL Estim Creat Clear Calc 129 ml/min Estimated GFR > 60 (59 - ) Glucose 82 (70-99) mg/dL Calculated Osmolality 278 L (285-295) mOsm/kg Calcium 8.6 (8.5-10.1) mg/dL Total Bilirubin 0.3 (0.00-1.00) mg/dL AST 12 L (15-37) U/L ALT 17 (14-59) U/L Alkaline Phosphatase 72 (46-116) U/L Total Protein 7.3 (6.4-8.2) g/dL Albumin 3.4 (3.4-5.0) g/dL Beta HCG, Quant 90739.00 H (0-6) mIU/mL Urine Color Red A (Yellow) Urine Appearance Cloudy A (Clear) Urine pH 6.0 (5.0-8.0) Ur Specific [place] >= 1.030 H (1.010-1.020) Urine Protein 1+ H (Negative) Urine Glucose (UA) Negative (Negative) Urine Ketones Trace H (Negative) Ur Blood (Man) 3+ H (Negative) Urine Nitrate Negative (Negative) Urine Bilirubin Negative (Negative) Urine Urobilinogen 1.0 (0.2-1.0) mg/dL Leukocyte Esterase Rfl Trace H (Negative) SINDHU/UL Urine RBC >75 H (0-2) /hpf Urine WBC 0-3 (0-3) /hpf Ur Squamous Epith Cells Few (Few) /hpf Urine Bacteria 1+ H (None) /hpf Blood Type A Positive Antibody Screen Pending Screen Pending Baby's Blood Type Pending Baby's AVA Pending Doses of RhIg Required Pending Discharge Plan Discharge Clinical Impression: Threatened Patient Disposition: Home Condition: Stable Instructions: Antibiotic Form, Threatened Miscarriage (ED) Patient Language: [place] Prescriptions: No Action hydroxyzine HCl 25 mg tablet 1 tablet PO TID aripiprazole 5 mg tablet 1 tablet PO DAILY Abilify methadone prazosin 1 mg capsule ibuprofen 800 mg tablet 800 mg PO TID PRN (Reason: pain) Qty: 15 0RF lidocaine HCl [Lidocaine Viscous] 2 % solution 1 applic mucous membrane TID PRN (Reason: pain) Qty: 100 0RF Rx Instructions: apply with cotton swab to site of pain Follow-up/Referrals: UNKNOWN,DOCTOR [Primary Care Provider] - Time of Disposition: 11:10
[2024-11-29] MEDS: ONDANSETRON HCL ODT 4 MG TABLET PO (10:15)
[2024-11-29 10:17] LABS: Add Urine Microscopic? YES; Appearance Urine Cloudy (Clear); Bilirubin Urine Negative (Negative); Blood Urine 3+ (Negative); Glucose Urine UA Negative (Negative); Ketones Urine Trace (Negative); Leukocyte Esterase Ur Trace LEU/UL (Negative); Nitrate Urine Negative (Negative); Protein Urine 1+ (Negative); Specific Grav Ur >= 1.030 (1.010-1.020)
[2024-11-29 10:28] LABS: Basophils Absolute Auto 0.01 K/mm3 (0.00-0.10); Basophils Percent Auto 0.1 % (0.0-1.0); Eosinophils Absolute Auto 0.11 K/mm3 (0.02-0.50); Eosinophils Percent Auto 1.3 % (1.0-6.0); Hematocrit 39.1 % (35.0-49.0); Hemoglobin 12.5 g/dL (12.0-15.0); Immature Granulocyte Absolute 0.03 K/mm3 (0.00-0.00); Immature Granulocyte Percent A 0.4 % (0.0-0.0); Lymphocytes Absolute Auto 1.78 K/mm3 (1.10-4.50); Lymphocytes Percent Auto 21.4 % (18.0-42.0); Mean Corpuscular Hemoglobin 26.8 pg (27.0-31.0); Mean Corpuscular Volume 83.9 fL (78.0-102.0); Mean Platelet Volume 9.9 fl (9.2-11.8); Monocytes Absolute Auto 0.24 K/mm3 (0.10-0.90); Monocytes Percent Auto 2.9 % (2.0-11.0); Neutrophils Absolute Auto 6.15 K/mm3 (1.70-7.20); Neutrophils Percent Auto 73.9 % (50.0-70.0); Platelet Count Result 233 K/mm3 (150-420); Red Blood Count 4.66 M/mm3 (4.20-5.40); White Blood Count 8.3 K/mm3 (4.8-10.8)
[2024-11-29 10:29] LABS: Bacteria Urine 1+ /hpf; Color Urine Red (Yellow); RBC Urine >75 /hpf (0-2); Squamous Epithelial Cell Urine Few /hpf (Few); WBC Urine 0-3 /hpf (0-3)
[2024-11-29 10:42] LABS: Partial Thromboplastin Time 27.4 Sec (23.9-30.70); Prothrombin Time 10.8 Seconds (9.50-12.1)
[2024-11-29 11:06] LABS: Alanine Aminotransferase 17 U/L (14-59); Albumin Level 3.4 g/dL (3.4-5.0); Alkaline Phosphatase 72 U/L (46-116); Anion Gap 9 mmol/L (4-12); Aspartate Amino Transferase 12 U/L (15-37); Bilirubin,Total 0.3 mg/dL (0.00-1.00); Blood Urea Nitrogen 6 mg/dL (7-18); Calcium 8.6 mg/dL (8.5-10.1); Carbon Dioxide 25 mmol/L (21-32); Chloride 102 mmol/L (98-108); Estimated CRCL calculation 129 ml/min; Estimated Glomerular Filt Rate > 60; Glucose 82 mg/dL (70-99); Osmolality Calculated 278 mOsm/kg (285-295); Potassium 3.9 mmol/L (3.5-5.1); Sodium 136 mmol/L (136-145); Total Protein 7.3 g/dL (6.4-8.2)
[2024-11-29 11:21] VITALS: BP 118/62; PULSE 72; RESP 16; TEMP 36.9; O2SAT 100
--- OUTSIDE RECORDS SUMMARY | 2024-11-29 16:12 | XMS_ITS | Data Portability ---
Author Organization [facility] [employer], Main Office Address [address] [place] [address] Assessment No assessment recorded. Plan of Treatment Reminders Order Date Submit Date Provider Last Modified By Organization Details Last Modified Time Details Appointments None recorded. Lab CMP, serum or plasma [address] (Lab), [address] [place], [address], 4 08:56:40 hepatitis panel (A+B+C), acute, serum [address] (Lab), [address] [place], [address], 4 08:56:40 Referral None recorded. Procedures None recorded. Surgeries None recorded. Imaging US, liver - *Please call pt to schedule* 2023 024 [facility], [address] [place], [address], 4 10:18:11 Medication Orders ondansetron 4 mg disintegrat ing tablet 2023 024 [facility] [facility] #[id number], [address], [place], [id number], 4 09:39:48 lamotrigine 25 mg tablet 2023 024 [facility][id number], [address], [place], [id number], 4 09:42:11 fluvoxamine 50 mg tablet 2023 024 [facility] #[id number], [address], [place], [id number], 4 09:42:11 lamotrigine 25 mg tablet 2022 023 [facility] #[id number], [address], [place], [id number], 3 10:15:01 fluvoxamine 50 mg tablet 2022 023 [email or web address] 3 [facility] #34062, [address], [place], [id number], 3 10:35:04 Patient TargetsNo targets recorded. Patient Instructions Encounter Date Encounter Id Patient Instructions Last Modified By Organization Details Last Modified Time 07/03/2023 [id number] has ondansetron from the hospital, advised bland food to start , , drink water . if worse get in to ED [email or web address] Not available 08/20/2023 18:22:38 Reason for Referral None Reported. Results Created Date Observation Date Name Description Value Unit Range Abnormal Flag Note LastModifiedBy Organization Detail LastModifiedTime 09/20/19 24 09/20/2023 US, liver No observ ation record ed. [email or web address] [facility] [address] [place], [address], 10/10/2023 11:42:55 09/20/19 24 09/20/2023 US, liver No observ ation record ed. [email or web address] [facility] [address] [place], [address], 10/10/2023 11:42:56 Result Notes None recorded. Problems Name Problem SNOMED Code Status Onset Date Resolution Date Notes Provider Name and Address Organization Details Recorded Time Asthma 254666038 Active 2022 Deneen davis SIGNAL WIRER null, [place] [facility] 3 09:54:47 Borderline personality disorder 64625989 Active 2022 Deneen davis SIGNAL WIRER [place] [facility] 3 09:54:59 Anxiety 89856442 Active 2022 Deneen davis SIGNAL WIRER null, [place] [facility] 3 09:55:07 Posttraumatic stress disorder 05257990 Active 2022 Deneen davis SIGNAL WIRER null, [place] [facility] 3 09:55:19 Psychologic conversion disorder 88742610 Active 2022 Deneen davis SIGNAL WIRER null, [place] [facility] 3 09:55:41 Tic disorder 702459 Active 2022 Deneen davis SIGNAL WIRER null, [place] [facility] 3 09:55:57 Mixed anxiety and depressive disorder 123109823 Active 2022 Lexa Matta MD [address], [address], [place], [address], [facility] 3 10:12:15 Recurrent conversion disorder 96842646 Active 2022 Lexa Matta MD [address], [address], [place], [address], [facility] 3 10:37:57 Nausea and vomiting 69775150 Active 2022 AUDRA Candelaria [address], [address], [place], [address], [place] [facility] 3 09:25:55 Liver enzymes level above reference range 968502228 Active 2023 AUDRA Candelaria [address], [address], [place], [address], [place] [facility] 09:40:15 Problem Notes None recorded. Procedures Surgical History Date Name Laterality Status Provider Name and Address Organization Details Recorded Time tonsilectomy/a denoids completed Deneen Adair CMA [facility] 05/22/2023 10:00:09 delivery completed Deneen Adair CMA [facility] 05/22/2023 10:00:22 Imaging Results Imaging Date Name Status LastModified by Organiz ation Details LastModified Time 09/20/2023 US, liver completed [email or web address] [facility] [address] [place], [address], 10/10/2023 11:42:55 09/20/2023 US, liver completed [email or web address] [facility] [address] [place], [address], 10/10/2023 11:42:56 Procedure Notes None recorded. Medical Equipment None Reported. Allergies Allergen ID Allergen Name Allergen Category Reaction Reaction Severity Criticality Documentation Date Start Date Code Code System Note Provider Name and Address Organization Details Recorded Time 10249 Prozac medicatio n hives Not available Not available 05/22/2023 77510 [facility] 09:[facility]05 18411 trazodone medicatio n hives Not available Not available 05/22/2023 96222 [facility] 09:52:22 Medications Name Sig Start Date Stop Date Status Note LastModified by Organization Details LastModified Time venlafaxine ER 37.5 mg capsule,ext ended release 24 hr TAKE 1 CAPSULE BY MOUTH EVERY DAY WITH FOOD 05/22 completed Not Available Not Available Not Available ibuprofen 800 mg tablet TAKE 1 TABLET BY MOUTH THREE TIMES DAILY NEEDED FOR PAIN 05/22 completed Not Available Not Available Not Available Lidocaine Viscous 2 % mucosal solution 05/22 completed Not Available Not Available Not Available prazosin 1 mg capsule TAKE 3 CAPSULES BY MOUTH EVERY DAY AT BEDTIME 05/22 completed Not Available Not Available Not Available prednisone 20 mg tablet TAKE 3 TABLETS BY MOUTH DAILY 05/22 completed Not Available Not Available Not Available penicillin V potassium 500 mg tablet 05/22 completed Not Available Not Available Not Available doxepin 10 mg capsule TAKE 1 CAPSULE BY MOUTH EVERY DAY AT BEDTIME 05/22 completed Not Available Not Available Not Available guaifenesin 200 mg tablet TAKE 1 TABLET BY MOUTH EVERY 4 HOURS FOR 7 DAYS NEEDED 05/22 completed Not Available Not Available Not Available lamotrigine 25 mg tablet TAKE 1 TABLET BY MOUTH TWICE DAILY active Not Available Not Available No t Available Zofran 4 mg tablet Take 2 tablets twice a day by oral route. 10/16 completed Not Available Not Available Not Available Nortrel 1/35 (28) 1 mg-35 mcg tablet TAKE 1 TABLET BY MOUTH EVERY DAY 05/22 completed Not Available Not Available Not Available oseltamivir 75 mg capsule TAKE 1 CAPSULE BY MOUTH EVERY 12 HOURS 05/22 completed Not Available Not Available Not Available nystatin 100,000 unit/gram topical cream 05/22 completed Not Available Not Available Not Available hydroxyzine HCl 25 mg tablet TAKE 1 TABLET BY MOUTH EVERY DAY NEEDED 05/22 completed Not Available Not Available Not Available fluvoxamine 50 mg tablet TAKE 1 TABLET BY MOUTH EVERY DAY active Not Available Not Available No t Available ibuprofen 600 mg tablet TAKE 1 TABLET BY MOUTH EVERY 6 HOURS NEEDED FOR PAIN 05/22 completed Not Available Not Available Not Available albuterol sulfate HFA 90 mcg/actuati on aerosol inhaler INHALE 2 PUFFS BY MOUTH EVERY 6 HOURS NEEDED FOR SHORTNESS OF BREATH OR WHEEZING active Not Available Not Available No t Available ondansetron 4 mg disintegrat ing tablet DISSOLVE 1 TABLET ON THE TONGUE THREE TIMES DAILY NEEDED active Not Available Not Available No t Available prazosin 2 mg capsule TAKE 1 CAPSULE BY MOUTH EVERY DAY AT BEDTIME 05/22 completed Not Available Not Available Not Available oxycodone 5 mg tablet TAKE 1 TABLET BY MOUTH EVERY 6 HOURS NEEDED FOR PAIN 05/22 completed Not Available Not Available Not Available aripiprazol e 15 mg tablet TAKE 1 TABLET BY MOUTH EVERY DAY 05/22 completed Not Available Not Available Not Available Vitals Date Recorded Body weight Body mass index (BMI) Body height Body temperature Heart rate Oxygen saturation Oxygen saturation in Arterial blood by Pulse oximetry Systolic blood pressure Diastolic blood pressure Provider Name and Address Organization Details Last Updated DateTime 3 660894. 06 g 32.7 kg/m2 177.8 cm 97.5 [degF] 77 /min 97 % 97 % 124 mm[Hg] 78 mm[Hg] Deneen davis CMA [facility] [employer] [facility] 3 09:51:54 Date Recorded Body height Body mass index (BMI) Body weight Body temperature Heart rate Oxygen saturation Oxygen saturation in Arterial blood by Pulse oximetry Systolic blood pressure Diastolic blood pressure Provider Name and Address Organization Details Last Updated DateTime 3 177.8 cm 33 kg/m2 882064. 25 g 98.5 [degF] 87 /min 98 % 98 % 126 mm[Hg] 88 mm[Hg] Yuli Barnes MA [facility] [employer] [facility] 3 16:46:08 Date Recorded Body height Body mass index (BMI) Body weight Body temperature Heart rate Oxygen saturation Oxygen saturation in Arterial blood by Pulse oximetry Respiratory rate Systolic blood pressure Diastolic blood pressure Provider Name and Address Organization Details Last Updated DateTime 4 177.8 cm 31.6 kg/m2 19858.3 2 g 97.6 [degF] 74 /min 98 % 98 % 16 /min 124 mm[Hg] 84 mm[Hg] Laquita Aguilera RN [facility] [employer] [facility] 4 09:33:50 Social History Question Answer Notes LastModified by Organizat ion Details LastModified Time Tobacco Smoking Status Current Every Day Smoker Deneen Adair CMA null, [facility] [employer] [facility] 05/22/2023 09:59:32 What Is Your Level Of Alcohol Consumption? None [email or web address] Information not available 05/22/2023 What Is Your Level Of Caffeine Consumption? Moderate [email or web address] Information not available 05/22/2023 What Type Of Diet Are You Following? REGULAR [email or web address] Information not available 05/22/2023 Do You Or Have You Ever Used E-cigarettes Or Vape? Current User Of Electronic Cigarettes [email or web address] Information not available 05/22/2023 At What Age Did You Start Smoking Tobacco? 14 [email or web address] Information not available 05/22/2023 Do You Or Have You Ever Used Smokeless Tobacco? Never Used Smokeless Tobacco [email or web address] Information not available 05/22/2023 How Much Tobacco Do You Smoke? 1 PPW [email or web address] Information not available 05/22/2023 How Many Years Have You Smoked Tobacco? 13 [email or web address] Information not available 05/22/2023 Do You Have Any Dietary Restrictions? No Information not available 05/22/2023 Do You Or Have You Ever Used Any Other Forms Of Tobacco Or Nicotine? Yes [email or web address] Information not available 05/22/2023 Sex: Female Functional Status Question Answer Note LastModified by Organizat ion Details LastModified Time What is your exercise level? Occasional [email or web address] Information not available 05/22/2023 Mental Status None recorded. Family History Relationship Description Onset Age of this Age Resolved Age Notes LastModified by Organization Details LastModified Time Mother Blue toes [email or web address] Not edna ilable 05/22/2023 09:57:07 Mother Disorder of coronary artery [email or web address] Not available 09:57:57 Medical History No medical history recorded. Gynecological HistoryNo gynecological history recorded. Obstetrics History GPAL:G 1 P 1 0 0 1 Type Value Full Term 1 Living 1 Total 1 Past Encounters Encounter ID Performer Location Encounter Start Date Encounter Closed Date Diagnosis/Indication Diagnosis SNOMED-CT Code Diagnosis ICD10 Code Diagnosis Note [id number] Lexa Matta MD [facility] [address] [facility] [address] [place] [address] 05/22/2023 09:43:39 05/22/2023 10:22:57 Mixed anxiety and depressive disorder 657288129 F41.8 Do not want to add benzos since pt is on methadone. Trying to get off this. weaning 5 mg every week. Once off this may need benzos.F/u in 6 weeks. Call with any complaints . Borderline personality disorder 07977177 F60.3 Recurrent conversion disorder 44521434 F44.9 [id number] Lexa Matta MD [facility] [address] [facility] [address] [address] 07/03/2023 16:38:46 07/03/2023 17:04:13 Nausea and vomiting 97135644 R11.2 [id number] Lexa Matta MD [facility] [address] [facility] [address] [place] [address] 09/18/2023 09:27:08 09/18/2023 09:47:04 Nausea and vomiting 60283843 R11.2 Liver enzy mes level above reference range 191749769 R74.01 Mixed anxi ety and depressive disorder 086698259 F41.8 Borderline personality disorder 05313808 F60.3 Health Concerns Section Related Observation LastModified by Organization Detai ls LastModified Time None Recorded Concern Status LastModified by Organization Details LastModified Time None Recorded Advance Directives Directive None Recorded Payers Encounter Date Sequence Insurance Name Policy Number Policy Castro Covered Member ID Castro Member ID Guarantor Name 05/22/[address] [facility] ON OR AFTER 01/27/21 (MEDICAID REPLACEMENT - HMO) Damari Blades [id number] Damari Blades 07/03/[address] [facility] ON OR AFTER 01/27/21 (MEDICAID REPLACEMENT - HMO) Damari Blades [id number] Damari Blades 09/18/[address] [facility] ON OR AFTER 01/27/21 (MEDICAID REPLACEMENT - HMO) Damari Blades [id number] Damari Blades Notes Date Note Type Note Provider Name and Address Organization Details Recorded Time 05/22/2023 text/html Here today to establish care as a new pt. Had an opioid problem and is a year sober now. On 22mg of methadone. Has anxiety and is thru the roof. It has been very stressful. Has conversion disorder. Has panic attacks. Has tried lexapro and buspirone no help. Is not seeing a psychiatrist. Has borderline disorder and coversion disorder and PTSD. Has tried multiple meds for this. Feels depressed and has no SI and has anxiety. No physical complaints. Lexa Matta MD [address], [address], [place], [address], [facility] [employer] [facility] [employer] [facility] 05/22/2023 10:47:54 07/03/2023 text/html HOSP SUNDAY , N/ V . [facility], no bad food, no bad water. is getting better. AUDRA Candelaria [address], [place], [address], [facility] [employer] [facility] [employer] [facility] 08/20/2023 18:23:15 09/18/2023 text/html n/v helped with krishan AUDRA Candelaria [address], [address], [place], [address], [facility] [employer] [facility] [employer] [facility] 09/25/2023 17:02:48 OBGyn Episode No OBEpisode recorded.
--- OUTSIDE RECORDS SUMMARY | 2024-11-29 16:12 | XMS_ITS | Clinical Summary ---
Author Organization [facility] Address [address] [place] [id number] Care Team Providers Care Instructional Technology Instructor Name Role Phone No, Physician Primary Care Provider [phone] Rich Alves MD Unavailable [phone] Allergies Active Allergy Reactions Criticality Noted Date Comments Fluoxetine Hives,Swelling,Swollen tongue High 2020 Trazodone Anaphylaxis,Hives High 02/07/2021 Medications metoclopramide (REGLAN) 10 mg tablet Take 1 tablet (10 mg total) by mouth every 6 (six) hours as needed (n/v) for up to 30 doses 30 tablet 11/17/2024 Active Active Problems Problem Noted Date Diagnosed Date Substance abuse requiring supervised withdrawal 06/30/2024 Opioid use with withdrawal 06/30/2024 Borderline personality disorder 07/18/2021 Assessment & Plan (07/20/2021 7:43 AM ENRICHMENT TEACHER): Known underlying psychiatric illness which may complicate treatment. Will monitor. Assessment & Plan (07/18/2021 6:15 PM ENRICHMENT TEACHER): Known underlying psychiatric illness which may complicate treatment. Will monitor. PTSD (post-traumatic stress disorder) 07/18/2021 Assessment & Plan (07/20/2021 7:43 AM ENRICHMENT TEACHER): Also known underlying psychiatric disorder. Did discuss with patient seeing psychiatrist as outpatient. Assessment & Plan (07/18/2021 6:16 PM ENRICHMENT TEACHER): Also known underlying psychiatric disorder. Did discuss with patient seeing psychiatrist as outpatient. Anxiety 07/18/2021 Assessment & Plan (07/20/2021 7:43 AM ENRICHMENT TEACHER): Will now be on Librium taper. Will monitor. Assessment & Plan (07/18/2021 6:16 PM ENRICHMENT TEACHER): Will now be on Librium taper. Will monitor. Depression 07/18/2021 Assessment & Plan (07/20/2021 7:43 AM ENRICHMENT TEACHER): Will need to see Psychiatry as an outpatient. Assessment & Plan (07/18/2021 6:16 PM ENRICHMENT TEACHER): Will need to see Psychiatry as an outpatient. Tobacco abuse disorder 07/18/2021 Assessment & Plan (07/20/2021 7:43 AM ENRICHMENT TEACHER): Cessation encouraged. Will place nicotine patch while here. Assessment & Plan (07/18/2021 6:16 PM ENRICHMENT TEACHER): Cessation encouraged. Will place nicotine patch while here. Opioid dependence with withdrawal 02/07/2021 Assessment & Plan (07/20/2021 7:43 AM ENRICHMENT TEACHER): Patient will be seen by [facility]. Discussed with patient using Suboxone taper. Several hours after visit, patient is now declining Suboxone taper. Will change to Librium taper. Continue other medications as needed for withdrawal symptoms. Patient expressed to me she wishes to have outpatient treatment not residential although this is in opposition to what she has told [facility] and nurses. Assessment & Plan (07/18/2021 6:15 PM ENRICHMENT TEACHER): Patient will be seen by [facility]. Discussed with patient using Suboxone taper. Several hours after visit, patient is now declining Suboxone taper. Will change to Librium taper. Continue other medications as needed for withdrawal symptoms. Patient expressed to me she wishes to have outpatient treatment not residential although this is in opposition to what she has told [facility] and nurses. Comments Yes Encounters Date Type Department Care Team Description 11/17/2024 8:53 AM CDT - 11/17/2024 9:40 AM CDT Emergency [facility] Emergency Department [address] [phone] Ladonna Barrientos MD Nausea and vomiting, unspecified vomiting type (Primary Dx) Discharge Disposition: Left Against Medical Advice from Last 3 Months Immunizations Immunization Administration Dates Next Due Pfizer SARS-CoV-2 Monovalent Vaccination (12+ Yrs) PURPLE 07/20/2021(Deferred: Patient Refused),07/19/2021(Deferred: Patient Refused) Surgical History Surgery Date Site/Laterality Comments TONSILLECTOMY/ADENOIDECTOMY Medical History Medical History Date Comments Substance abuse (HCC) PTSD (post-traumatic stress disorder) Borderline personality disorder (HCC) Anxiety Depression Family History Medical History Relation Name Comments Mental illness Brother Diabetes Mother Multiple sclerosis Mother Transient ischemic attack Mother Relation Name Status Comments Brother Alive Mother Alive Social History Tobacco Use Types Packs/Day Years Used Date Smoking Tobacco: Some Days Cigarettes Smokeless Tobacco: Never Tobacco Cessation:Ready to Q uit: Not Asked; Counseling Given: Not Answered AUDIT-C Answer Date Recorded Q1: How often do you have a drink containing alc ohol? 2-3 times a week 06/30/2024 Q2: How many drinks containi ng alcohol do you have on a typical day when you are drinking? 10 or more 06/30/2024 Q3: How often do you have si x or more drinks on one occasion? Weekly 06/30/2024 Personal Safety Answer Date Recorded Have you ever been in or are you currently in a harmful physical or emotional relationship or is someone making you feel afraid or unsafe? Denies 11/17/2024 Comments Yes Sex and Gender Information Value Date Recorded Sex Assigned at Not on file Legal Sex Female 7:27 PM ENRICHMENT TEACHER Gender Identity Not on file Sexual Orientation Not on file Obstetrics History Para Term AB IAB SAB Ectopic Multiple Livin g Live Births 2 Date Outcome GA Total Labor Labor/2nd/3rd Weight Sex Type Anes PTL Jie A1 A5 Name Clin Current Last Filed Vital Signs Vital Sign Reading Time Taken Comments Blood Pressure 111/70 11/17/2024 9:15 AM CDT Pulse 62 11/17/2024 9:15 AM CDT Temperature 36.7 C (98 F) 11/17/2024 8:27 AM CDT Respiratory Rate 16 11/17/2024 8:27 AM CDT Oxygen Saturation 97% 11/17/2024 9:15 AM CDT Inhaled Oxygen Concentration - - Weight 86.2 kg (190 lb) 11/17/2024 8:27 AM CDT Height 177.8 cm (5' 10 ) 06/30/2024 1:16 PM ENRICHMENT TEACHER Body Mass Index 27.26 06/30/2024 1:16 PM ENRICHMENT TEACHER Plan of Treatment Health Maintenance Due Date Last Done Comments Cervical Cancer Screening 1995 Depression Screening 1995 Regular Well Visit/Exam 18-64 2013 Pneumococcal vaccine <65 (1 of 2 - PCV) 2014 Influenza Vaccine (Season Ended) 2025 06/08/20 08 DTaP/Tdap/Td Vaccine (7 - Td or Tdap) 11/14/2027 11/13/2017, 04/29/2007, 07/04/2001, Additional history exists Hepatitis B Screening Completed 02/28/1996 , 1995, 1995 Varicella Vaccines Completed 03/03/2008, 08/29/2000 HPV Vaccines Completed 12/07/2009, 07/30, 03/30/2009 Hepatitis C Screening Completed 06/29/2023, 021 Procedures Procedure Name Priority Date/Time Associated Diagnosis Comments EGFR STAT 11/17/2024 8:33 AM CDT DIFFERENTIAL AUTO STAT 11/17/2024 8:3 3 AM CDT COMPREHENSIVE METABOLIC PANEL STAT 11/17/2024 8:33 AM CDT CBC WITH AUTO DIFFERENTIAL STAT 11/17/2024 8:33 AM CDT HEPATITIS PANEL, ACUTE STAT 11:15 PM ENRICHMENT TEACHER from Last 3 Months or Most Recently Relevant to Health Maintenance Results * eGFR (11/17/2024 8:33 AM CDT) eGFR >90 >=60 mL/min/1. 73 m2 Comment: Interpretive Data Reference Interval Normal >/= 90 mL/min/1.73m2 Mildly decreased* 60 - 89 mL/min/1.73m2 Mildly to moderately decreased 45 - 59 mL/min/1.73m2 Moderately to severely decreased 30 - 44 mL/min/1.73m2 Severely decreased 15 - 29 mL/min/1.73m2 Kidney Failure < 15 mL/min/1.73m2 *Relative to young adult level Estimated glomerular filtration rate is determined by the 2020 CKD-EPI equation recommended by the National Kidney Foundation (A Unifying Approach to GFR Estimation: Recommendations of the NKF-ASK Task Force on Reassessing the Inclusion of Race in Diagnosing Kidney Disease, JASN 2020). The CKD-EPI equation should not be used for patients with unstable renal function and has not been validated in children and those over 70. Current interpretive data was last reviewed 2021. Blood 11/17/2024 8:33 AM CDT 11/17/2024 8:39 AM CDT us Ladonna Barrientos MD LAB BLOOD ORDERABLES Bettie lane Result [facility] ([place]) 1 [facility] Department [place] [address] * Differential, auto (11/17/2024 8:33 AM CDT) Neutrophil abs 6.03 1.50 - 6.50 K/cumm Imm gran abs 0.02 0.00 - 0.10 K/cumm [facility] ([place]) Lymphocyte abs 2.17 0.80 - 3.30 K/cumm [facility] ([place]) Monocyte abs 0.31 0.20 - 0.80 K/cumm [facility] ([place]) Eosinophil abs 0.08 0.00 - 0.50 K/cumm [facility] ([place]) Basophil abs 0.02 0.00 - 0.10 K/cumm [facility] ([place] Neutrophil pct 70.0 % [facility] Comment: Interpretive Data Percent cell count reference ranges are not reported, since discordance with absolute values may lead to misinterpretation of CBC data. Current Interpretive Data was last revised on 2017. Imm gran pct 0.2 % [facility] ([place]) Comment: Interpretive Data Percent cell count reference ranges are not reported, since discordance with absolute values may lead to misinterpretation of CBC data. Current Interpretive Data was last revised on 2017. Lymphocyte pct 25.1 % [facility] ([place] Comment: Interpretive Data Percent cell count reference ranges are not reported, since discordance with absolute values may lead to misinterpretation of CBC data. Current Interpretive Data was last revised on 2017. Monocyte pct 3.6 % [facility] ([place] Comment: Interpretive Data Percent cell count reference ranges are not reported, since discordance with absolute values may lead to misinterpretation of CBC data. Current Interpretive Data was last revised on 2017. Eosinophil pct 0.9 % [facility] Comment: Interpretive Data Percent cell count reference ranges are not reported, since discordance with absolute values may lead to misinterpretation of CBC data. Current Interpretive Data was last revised on 2017. Basophil pct 0.2 % [facility] ([place] Comment: Interpretive Data Percent cell count reference ranges are not reported, since discordance with absolute values may lead to misinterpretation of CBC data. Current Interpretive Data was last revised on 2017. Blood 11/17/2024 8:33 AM CDT 11/17/2024 8:39 AM CDT us Ladonna Barrientos MD LAB BLOOD ORDERABLES Bettie ariana Result [facility] ([place] 1 [facility] Department [place] [address] * CBC with auto differential (11/17/2024 8:33 AM CDT) WBC 8.63 3.80 - 9.90 K/cumm Hgb 13.7 11.9 - 15.5 g/dL [facility] Hct 42.2 35.6 - 45.5 % [facility] Plt 254 150 - 400 K/cumm [facility] ([place]) MPV 9.5 9.1 - 12.3 fL [facility] RBC 5.02 3.90 - 5.20 M/cumm [facility] MCV 84.1 81.3 - 96.4 fL [facility] MCH 27.3 27.1 - 33.3 pg [facility] MCHC 32.5 32.3 - 35.7 g/dL [facility] RDW CV 13.2 11.1 - 14.9 % [facility] RDW SD 40.3 35.7 - 48.1 fL [facility] NRBC abs 0.00 0.00 - 0.01 K/cumm [facility] Blood Venous blood specimen / Unknown 11/17/2024 8:33 AM CDT 11/17/2024 8:39 AM CDT Ladonna Barrientos MD LAB BLOOD ORDERABLES Bettie l Result [facility] ([place] 1 [facility] Department [place] [address] * (ABNORMAL) Comprehensive metabolic panel (11/17/2024 8:33 AM CDT) Sodium 133(L) 135 - 145 mmol/L Potassium, pl 3.9 3.3 - 4.9 mmol/L [facility] Chloride 100 97 - 110 mmol/L [facility]) CO2 22 22 - 32 mmol/L [facility]) Anion gap 11 2 - 15 mmol/L [facility] BUN 8 6 - 25 mg/dL [facility] Creatinine 0.62 0.60 - 1.10 mg/dL [facility] Glucose 115 70 - 199 mg/dL [facility] Comment: Interpretive Data Fasting glucose >/= 126 mg/dl is diagnostic for diabetes. Fasting is defined as no caloric intake for at least 8 hours. Fasting glucose between 100 mg/dl to 125 mg/dl is diagnostic of prediabetes. In a patient with classic symptoms of hyperglycemia or hyperglycemic crisis, a random glucose >/= 200 mg/dl is diagnostic for diabetes. In the absence of unequivocal hyperglycemia, results should be confirmed by repeat testing. The classification and Diagnosis of Diabetes Diabetes Care 2021; 46: S19-S40. Current interpretive data was last revised 2022. Calcium 9.0 8.5 - 10.3 mg/dL [facility] ([place]) Bilirubin, total 0.4 0.1 - 1.2 mg/dL [facility] ([place]) Protein, pl 7.4 6.5 - 8.5 g/dL [facility] Albumin 4.1 3.5 - 5.0 g/dL [facility] Alk phos 79 40 - 130 Units/L [facility] ALT 13 7 - 45 Units/L [facility] AST 14 10 - 45 Units/L [facility] Blood Venous blood specimen / Unknown 11/17/2024 8:33 AM CDT 11/17/2024 8:39 AM CDT us Ladonna Barrientos MD LAB BLOOD ORDERABLES Bettie lane Result [facility] 1 [facility] Department [place] [address] * Hepatitis panel, acute Blood (06/29/2023 11:15 PM ENRICHMENT TEACHER) Hep A IgM Nonreactive Nonreactive [facility] ([place]) Comment: Interpretive Data: If Hep A IgM Ab is reported as Equivocal, a new sample should be drawn in two weeks for testing. Current interpretive data was last revised on 19. Testing performed by: [facility], [address] [place] [address], [place]., [id number] Hep B core IgM Nonreactive Nonreactive [facility] ([place]) Comment: Interpretive Data If HepB Core IgM Ab is reported as Equivocal, a new sample should be drawn in two weeks for testing. Current interpretive data was last revised on 19. Testing performed by: [facility], [address] [place] [address]., [id number] Hep C Ab Nonreactive Nonreactive [facility] Comment: Interpretive Data Nonreactive: Antibodies to HCV not detected. Does NOT exclude the possibility of recent exposure to HCV. Equivocal: Equivocal for HCV antibodies. Supplemental molecular testing will be automatically performed to determine infection status in accordance with current CDC screening recommendations. Reactive: Positive for HCV antibodies. This may represent current or past HCV infection. Supplemental molecular testing will be automatically performed to determine current infection status in accordance with current CDC screening recommendations. Interpretive data was last revised on 2019. Testing performed by: [facility], [address] [place] [address]., [id number] HepBsAg Nonreactive Nonreactive [facility] Comment:Testing performed by : [facility], [address] [place] [address]., [id number] Blood 06/29/2023 11:1 5 PM ENRICHMENT TEACHER 07/01/2023 6:38 PM ENRICHMENT TEACHER Yuliana [facility] LAB MICROBIOLOGY - GENERAL CLAUDETTE LEVIN Final Result [facility] ([place] Department [place] [address] from Last 3 Months or Most Recently Relevant to Health Maintenance Insurance [facility] Advance Directives For more information, please contact: [phone] * Full Code (Latest Code Status on File) Date Activated Date Inactivated Comments 06/30/2024 1:21 PM 07/02/2024 1:36 PM * Full Code Date Activated Date Inactivated Comments 07/18/2021 4:09 PM 07/20/2021 3:39 PM * Full Code Date Activated Date Inactivated Comments 04/19/2021 11:21 AM 04/20/2021 4:09 AM * Full Code Date Activated Date Inactivated Comments 02/07/2021 2:10 PM 02/10/2021 2:02 PM Care Teams Instructional Technology Instructor Relationship Specialty Start Date End Date No, Physician PCP - General 02/07/21 Rich Alves MD [address] [place] [address] Consulting Physician Family Medicine 07/20/21
--- OUTSIDE RECORDS SUMMARY | 2024-11-29 16:12 | XMS_ITS | Referral Summary ---
Author Organization [facility] Address [address] [place] [id number] Care Team Providers Care Rod Mill Operator Name Role Phone No, Physician Primary Care Provider [phone] Rich Alves MD Unavailable [phone] Encounters Date Type Department Care Team Description 11/17/2024 8:53 AM CDT - 11/17/2024 9:40 AM CDT Emergency [facility] Emergency Department [address] [place] [address] Ladonna Barrientos MD Nausea and vomiting, unspecified vomiting type (Primary Dx) Discharge Disposition: Left Against Medical Advice from Last 3 Months Allergies Active Allergy Reactions Criticality Noted Date [...] 07/18/2021 Assessment & Plan (07/20/2021 7:43 AM PUBLICATIONS WRITER): Known underlying psychiatric illness which may complicate treatment. Will monitor. Assessment & Plan (07/18/2021 6:15 PM PUBLICATIONS WRITER): Known underlying psychiatric illness which may complicate treatment. Will monitor. PTSD (post-traumatic stress disorder) 07/18/2021 Assessment & Plan (07/20/2021 7:43 AM PUBLICATIONS WRITER): Also known underlying psychiatric disorder. Did discuss with patient seeing psychiatrist as outpatient. Assessment & Plan (07/18/2021 6:16 PM PUBLICATIONS WRITER): Also known underlying psychiatric disorder. Did discuss with patient seeing psychiatrist as outpatient. Anxiety 07/18/2021 Assessment & Plan (07/20/2021 7:43 AM PUBLICATIONS WRITER): Will now be on Librium taper. Will monitor. Assessment & Plan (07/18/2021 6:16 PM PUBLICATIONS WRITER): Will now be on Librium taper. Will monitor. Depression 07/18/2021 Assessment & Plan (07/20/2021 7:43 AM PUBLICATIONS WRITER): Will need to see Psychiatry as an outpatient. Assessment & Plan (07/18/2021 6:16 PM PUBLICATIONS WRITER): Will need to see Psychiatry as an outpatient. Tobacco abuse disorder 07/18/2021 Assessment & Plan (07/20/2021 7:43 AM PUBLICATIONS WRITER): Cessation encouraged. Will place nicotine patch while here. Assessment & Plan (07/18/2021 6:16 PM PUBLICATIONS WRITER): Cessation encouraged. Will place nicotine patch while here. Opioid dependence with withdrawal 02/07/2021 Assessment & Plan (07/20/2021 7:43 AM PUBLICATIONS WRITER): Patient will be seen by [facility]. [...] nurses. Assessment & Plan (07/18/2021 6:15 PM PUBLICATIONS WRITER): Patient will be seen by [facility]. [...] told [facility] and nurses. Comments Yes Immunizations Immunization Administration Dates Next Due Pfizer SARS-CoV-2 Monovalent Vaccination (12+ Yrs) PURPLE 07/20/2021(Deferred: Patient Refused),07/19/2021(Deferred: Patient Refused) Social History Tobacco Use Types Packs/Day Years [...] on file Legal Sex Female 7:27 PM PUBLICATIONS WRITER Gender Identity Not on file Sexual Orientation Not on file Last Filed Vital Signs Vital Sign Reading [...] cm (5' 10 ) 06/30/2024 1:16 PM PUBLICATIONS WRITER Body Mass Index 27.26 06/30/2024 1:16 PM PUBLICATIONS WRITER Plan of Treatment Not on file Procedures Procedure Name Priority Date/Time Associated Diagnosis Comments EGFR STAT 11/17/2024 8:33 AM CDT DIFFERENTIAL AUTO STAT 11/17/2024 8:3 3 AM CDT COMPREHENSIVE METABOLIC PANEL STAT 11/17/2024 8:33 AM CDT CBC WITH AUTO DIFFERENTIAL STAT 11/17/2024 8:33 AM CDT HEPATITIS PANEL, ACUTE STAT 11:15 PM PUBLICATIONS WRITER from Last 3 Months or Most Recently [...] MD LAB BLOOD ORDERABLES Bettie l Result [facility] [place]) 1 [facility] Department [place] [address] 78 * Differential, auto (11/17/2024 8:33 AM CDT) Neutrophil abs 6.03 1.50 - 6.50 K/cumm Imm gran abs 0.02 0.00 - 0.10 K/cumm [facility] ([place]) Lymphocyte abs 2.17 0.80 - 3.30 K/cumm [facility]) Monocyte abs 0.31 0.20 - 0.80 K/cumm [facility] ([place]) Eosinophil abs 0.08 0.00 - 0.50 K/cumm [facility] ([place]) Basophil abs 0.02 0.00 - 0.10 K/cumm [facility] ([place]) Neutrophil pct 70.0 % [facility] ([place]) Comment: Interpretive Data Percent cell count reference ranges are not reported, since discordance with absolute values may lead to misinterpretation of CBC data. Current Interpretive Data was last revised on 2017. Imm gran pct 0.2 % [facility] ([place]) Comment: Interpretive Data Percent cell count reference ranges are not reported, since discordance with absolute values may lead to misinterpretation of CBC data. Current Interpretive Data was last revised on 2017. Lymphocyte pct 25.1 % [facility] ([place]) Comment: Interpretive Data Percent cell count reference ranges are not reported, since discordance with absolute values may lead to misinterpretation of CBC data. Current Interpretive Data was last revised on 2017. Monocyte pct 3.6 % [facility] ([place]) Comment: Interpretive Data Percent cell count reference ranges are not reported, since discordance with absolute values may lead to misinterpretation of CBC data. Current Interpretive Data was last revised on 2017. Eosinophil pct 0.9 % [facility] ([place] Comment: Interpretive Data Percent cell count reference ranges are not reported, since discordance with absolute values may lead to misinterpretation of CBC data. Current Interpretive Data was last revised on 2017. Basophil pct 0.2 % [facility] ([place] Comment: Interpretive Data Percent cell count reference ranges are not reported, since discordance with absolute values may lead to misinterpretation of CBC data. Current Interpretive Data was last revised on 2017. Blood 11/17/2024 8:33 AM CDT 11/17/2024 8:39 AM CDT Ladonna Barrientos MD LAB BLOOD ORDERABLES Bettie l Result [facility] ([place] [address] [facility] [place] [address] * CBC with auto differential (11/17/2024 8:33 AM CDT) WBC 8.63 3.80 - 9.90 K/cumm Hgb 13.7 11.9 - 15.5 g/dL [facility] Hct 42.2 35.6 - 45.5 % [facility] Plt 254 150 - 400 K/cumm [facility] MPV 9.5 9.1 - 12.3 fL [facility] RBC 5.02 3.90 - 5.20 M/cumm [facility] MCV 84.1 81.3 - 96.4 fL [facility] MCH 27.3 27.1 - 33.3 pg [facility] MCHC 32.5 32.3 - 35.7 g/dL [facility] RDW CV 13.2 11.1 - 14.9 % [facility] RDW SD 40.3 35.7 - 48.1 fL [facility] NRBC abs 0.00 0.00 - 0.01 K/cumm [facility] Blood Venous blood specimen / Unknown 11/17/2024 8:33 AM CDT 11/17/2024 8:39 AM CDT Ladonna Barrientos MD LAB BLOOD ORDERABLES Bettie l Result [facility] ([place] 1 [facility] [employer] [place] [address] * (ABNORMAL) Comprehensive metabolic panel (11/17/2024 8:33 AM CDT) Sodium 133(L) 135 - 145 mmol/L Potassium, pl 3.9 3.3 - 4.9 mmol/L [facility] Chloride 100 97 - 110 mmol/L [facility] CO2 22 22 - 32 mmol/L [facility] Anion gap 11 2 - 15 mmol/L [facility] BUN 8 6 - 25 mg/dL [facility]) Creatinine 0.62 0.60 - 1.10 mg/dL [facility] Glucose 115 70 - 199 mg/dL [facility] ([place] Comment: Interpretive Data Fasting glucose [...] MD LAB BLOOD ORDERABLES Bettie l Result [facility] ([place]) 1 [facility] Department [place] [address] * Hepatitis panel, acute Blood (06/29/2023 11:15 PM PUBLICATIONS WRITER) Hep A IgM Nonreactive Nonreactive [facility] ([place]) Comment: Interpretive Data: If Hep A IgM Ab is reported as Equivocal, a new sample should be drawn in two weeks for testing. Current interpretive data was last revised on 19. Testing performed by: [address] [address] Hep B core IgM Nonreactive Nonreactive [facility] ([place]) Comment: Interpretive Data If HepB Core IgM Ab is reported as Equivocal, a new sample should be drawn in two weeks for testing. Current interpretive data was last revised on 19. Testing performed by: [address] [address] Hep C Ab Nonreactive Nonreactive [facility] ([place] Comment: Interpretive Data Nonreactive: Antibodies to [...] last revised on 2019. Testing performed by: [address] [address] HepBsAg Nonreactive Nonreactive [facility] ([place]) Comment:Testing performed by : [address] [address] Blood 06/29/2023 11:1 5 PM PUBLICATIONS WRITER 07/01/2023 6:38 PM PUBLICATIONS WRITER us Yuliana [facility] MICROBIOLOGY - GENERAL CLAUDETTE LEVIN Final Result [facility] ([place]) 1 [facility] Department [place] [address] from Last 3 Months or Most Recently Relevant to Health Maintenance Insurance [facility] [place] [address] [address] [facility] Advance Directives For more information, please contact: [phone] * Full Code (Latest Code Status on File) Date Activated Date Inactivated Comments 06/30/2024 1:21 PM 07/02/2024 1:36 PM * Full Code Date Activated Date Inactivated Comments 07/18/2021 4:09 PM 07/20/2021 3:39 PM * Full Code Date Activated Date Inactivated Comments 04/19/2021 11:21 AM 04/20/2021 4:09 AM * Full Code Date Activated Date Inactivated Comments 02/07/2021 2:10 PM 02/10/2021 2:02 PM Care Teams Rod Mill Operator Relationship Specialty Start Date End Date No, Physician PCP - General 02/07/21 Rich Alves MD [address] [place] [address] Consulting Physician Family Medicine 07/20/21
--- OUTSIDE RECORDS SUMMARY | 2024-11-29 16:12 | XMS_ITS | Clinical Summary ---
Author Organization [facility] Address [address] [place] [address] Phone Care Team Providers Care Soil Expert Name Role Phone Provider, None Primary Care Provider Unavailabl e Allergies Active Allergy Reactions Criticality Noted Date Comments Trazodone Hives 05/01/2021 Medications ondansetron (Zofran ODT) 4 MG TABLET DISPERSIBLE Take 1 Tablet by mouth every 8 hours as needed for Nausea - 1st line. 10 Tablet 05/01/2021 Active prochlorperazine (COMPAZINE) 5 MG Tablet Take 1 Tablet by mouth every 6 hours as needed for Nausea - 2nd line. 20 Tablet 05/01/2021 Active Active Problems No known active problems Social History Tobacco Use Types Packs/Day Years Used Date Smoking Tobacco: Every Day Cigarettes Smokeless Tobacco: Never Tobacco Cessation:Ready to Q uit: No; Counseling Given: No Alcohol Use Standard Drinks/Week Comments Not Currently 0 (1 standard drink = 0.6 oz pur e alcohol) Socially Comments No Sex and Gender Information Value Date Recorded Sex Assigned at Not on file Legal Sex Female 5:10 AM CDT Gender Identity Not on file Sexual Orientation Not on file Last Filed Vital Signs Vital Sign Reading Time Taken Comments Blood Pressure 120/73 05/01/2021 5:14 AM CDT Pulse 113 05/01/2021 5:14 AM CDT Temperature 37.7 C (99.9 F) 05/01/2021 5:14 AM CDT Respiratory Rate 19 05/01/2021 5:14 AM CDT Oxygen Saturation - - Inhaled Oxygen Concentration - - Weight 81.6 kg (180 lb) 05/01/2021 5:14 AM CDT Height 177.8 cm (5' 10 ) 05/01/2021 5:14 AM CDT Body Mass Index 25.83 05/01/2021 5:14 AM CDT Plan of Treatment Not on file Insurance MEDICAID [employer] Care Teams Soil Expert Relationship Specialty Start Date End Date Provider, None [place] PCP - General 05/01/21
--- OUTSIDE RECORDS SUMMARY | 2024-11-29 16:12 | XMS_ITS | Patient Health Record ---
Author Organization [facility] Address [address] [place] [address] Care Team Providers Care Police Commissioner Name Role Phone Wandy Dominique Primary Care Provider Elyse Trammell Unavailable [phone] Allergies Allergen (clinical drug ingredient) Drug/Non Drug Allergy documented on EMR Reaction Allergy Type Onset Date Status fluoxetine PROzac Unknown Drug Allergy Active trazodone Trazodone Unknown Drug Allergy Active Reason For Referral No Information Medications Medication SIG (Take, Route, Frequency, Duration) Notes Start Date End Date Status Methadone HCl Active Doxepin HCl 10 MG 1 capsule at bedtime Orally Once a day for 30 day(s) 11/23/2022 Active Prazosin HCl 1 MG 3 capsule at bedtime Orally Once a day for 30 days Active Effexor XR 37.5 MG 1 capsule with food Orally Once a day for 30 days 10/20/2022 Active hydrOXYzine HCl 25 MG 1 tablet as needed Orally Once a day for 30 days 10/20/2022 Active Abilify 15 MG 1 tablet Orally Once a day for 30 days 10/20/2022 Active Albuterol Sulfate HFA 108 (90 Base) MCG/ACT 1 puff as needed Inhalation every 4 hrs for 30 days Active guaiFENesin 200 MG 1 tablet as needed O rally every 4 hrs for 7 days Active EPINEPHrine 0.3 MG/0.3ML as directed Inj ection for 999 days Active Docusate Sodium 100 MG 1 capsule as need ed Orally Once a day for 30 days Active Social History Tobacco Use: Social History Observation Description Date Details (start date - stop date) Current Smoker NA - NA Sex Assigned At : Social History Observation Description Sex Assigned At Female Dont use, Tobacco Use/Smoking Question Answer Notes Are you a current every day smoker Alcohol Screen (Audit-C) Question Answer Notes Did you have a drink containing alcohol in the p ast year? No Points 0 Interpretation Negative PRAPARE Question Answer Notes What is your current housing situation? I do not have housing (staying with others, in a hotel, in a intermediate, living outside on the street, on a beach, or in a park) Are you worried about losing your housing? No What is the highest level of school that you have finished? More than high school What is your current work situation? Unemployed and seeking work In the past year, have you o r any family members you live with been unable to get any of the following when it was really needed? Check all that apply I do not have problems meeting my needs Has lack of transportation k ept you from medical appointments, meetings, work or from getting things needed for daily living? No How often do you see or talk to people that you care about and feel close to? (For example: talking to friends on the phone, visiting friends or family, going to rastafari or club meetings) 3 to 5 times a week How stressed are you? Stress is when someone feels tense, nervous, anxious, or can\t sleep at night because their mind is troubled Somewhat In the past year have you sp ent more than 2 nights in a row in a mcc, correction, half-way center, or juvenile correctional facility? No Are you a refugee? No What country are you from? [place] Do you feel physically and e motionally safe where you currently live? No In the past year, have you b een afraid of your partner or ex-partner? No PRAPARE Score: 6 Problems Problem Type SNOMED Code ICD Code Onset Dates Problem Status W/U Status Risk Notes Problem Vitamin D deficiency (87784375) Vitamin D deficiency, unspecified (E55.9) Active confirmed Problem Borderline personality disorder (79654135) Borderline personality disorder (F60.3) Active confirmed Problem Constipation (28346924) Constipation, unspecified (K59.00) Active confirmed Problem Posttraumatic stress disorder (64719150) PTSD (post-traumatic stress disorder) (F43.10) Active confirmed Problem Generalized anxiety disorder (70119517) YARIEL (generalized anxiety disorder) (F41.1) Active confirmed Problem Bipolar 2 disorder (90183489) Bipolar 2 disorder (F31.81) Active confirmed Problem Opioid dependence (09357198) Opioid use disorder, moderate, dependence (F11.20) Active confirmed Problem Tobacco use (015799484) Tobacco use disorder (F17.200) Active confirmed Plan Of Treatment Future Test Test Name Order Date Hemoglobin A1c* 10/20/2022 Vitamin B12* 10/20/2022 CBC With Differential/Platelet* 10/21/19 23 Vitamin D, 25-Hydroxy* 10/20/2022 [id number] 10/20/2022 Lipid Panel* 10/20/2022 Insurance Providers Payer Name Payer Address Payer Phone Subscriber Number Group Number Insured Name Patient Relationship to Insured Coverage Start Date Coverage End Date [facility] Attn Claims Department [address] [place] [address] [id number] Damari Salcedo Self - patient is the insured 1 Medical (General) History Medical History History ICD Code asthma Surgical History Surgery Date(Month/Year) Tonsillectomy Hospitalization History Reason Date(Month/Year) [facility]ox [facility] 07/19
== END 2024-11-29 11:21 | disposition home or self-care (01) ==
PROVIDERS: Emergency Provider Internal Medicine Critical Care Medicine
DX: O20.0 Threatened abortion (principal); O99.331 Smoking (tobacco) complicating pregnancy, first trimester; F17.210 Nicotine dependence, cigarettes, uncomplicated; Z3A.01 Less than 8 weeks gestation of pregnancy
CPT/HCPCS: 36415; 80053; 81001; 84702; 85025; 85461; 85610; 85730; 86850; 86900; 86901; 99283; A9270